=== PATIENT | male | born 2000 | race Caucasian/White ===

== ENCOUNTER 2025-08-04 20:32 | Emergency (ER) | payer SELFPAY ==
--- NOTE | ~2025-08-04 | CT_ITS ---
CLINICAL HISTORY: LLQ pain into L testicle eval for hernia CT abdomen and pelvis with contrast Comparison: None provided Findings: The lung bases are clear. 3 mm nonobstructing left inferior renal caliceal stone. Gallbladder and solid organs otherwise unremarkable. A few loops of small bowel in the pelvis are mildly distended with air-fluid levels. No wall thickening or abrupt transitions. Mesenteric vessels patent. Moderate stool. Appendectomy. No evidence of diverticulitis. Small reactive bilateral groin lymph nodes. No ascites or hernia. No acute fracture. IMPRESSION: 1. Nonspecific gas and fluid within a few pelvic small bowel loops. Localized ileus favored. No evidence of obstruction or enteritis. 2. Nonobstructing 3 mm left renal stone. 3. No hernias. 4. Additional nonacute findings as above. This document has been electronically signed by: Tisha Lazaro MD on 08/05/2025 01:01:52
[2025-08-04 21:45] VITALS: BP 129/62; PULSE 79; RESP 16; TEMP 36.7; O2SAT 99; BMI 22.8
--- NOTE | 2025-08-04 22:19 | PC.NURSE ---
pt resting, girlfriend at bedside, denies hx of this pain, pt denies injury, started 07/25/25, worse when he bends over, pain 07/05. denies nausea or vomiting. respirations even and unlabored.
[2025-08-04 22:25] LABS: MANUAL DIFF FLAG NO
[2025-08-04 22:27] LABS: Hematocrit 40.7 % (42.0-52.0); Hemoglobin 13.7 g/dl (14.0-18.0); Imm Gran Abs Auto 0.01 X10*3/uL (0.00-0.03); Imm Gran Pct Auto 0.1 % (0.0-0.4); Lymphocytes Absolute Auto 3.8 X10*3/uL (1.2-4.9); Mean Corpuscular HGB Conc 33.7 g/dl (31.0-36.0); Mean Corpuscular Hemoglobin 31.3 pg (27.0-33.0); Mean Corpuscular Volume 92.9 fL (80.0-98.0); NRBC Abs Auto 0.000 X10*3/uL (0.0-0.012); NRBC Pct Auto 0.0 /100WBC (0.0-0.2); Platelet Count 270 X10*3/uL (160-400); Red Blood Count 4.38 X10*6/uL (4.60-5.80); White Blood Count 8.5 X10*3/uL (4.8-10.8)
[2025-08-04 22:30] LABS: Appearance Urine Clear; Glucose Urine UA Negative (Negative); PH 7.0 (5.0-9.0); Specific Gravity - Urine 1.020 (1.005-1.025)
[2025-08-04 22:44] LABS: Anion Gap 12 (12-20); Blood Urea Nitrogen 14 mg/dL (9-16); Calcium 9.2 mg/dL (8.4-10.2); Carbon Dioxide 24 mmol/L (22-29); Chloride 111 mmol/L (96-108); Creatinine Clr Calc Pharmacy 98.7; Estimated Glomerular Filt Rate > 60; Potassium 4.2 mmol/L (3.3-5.1); Sodium 143 mmol/L (135-145)
--- NOTE | 2025-08-05 | PC.NURSE ---
this rn at bedside with MD Sinclair for exam. pt tolerated well
--- NOTE | 2025-08-05 00:07 | ED_ITS ---
HPI - Abdominal Pain General Chief Complaint: Abdominal Pain Stated Complaint: lwr abd pain 2wks+ Time Seen by Provider: 08/04/25 23:16 Source: patient Mode of arrival: ambulatory Limitations: no limitations History of Present Illness ED Provider: Dr. China Sinclair HPI narrative: 24-year-old male with history of appendectomy presenting with left lower quadrant abdominal pain radiating into his leg and testicle ongoing for the last 10 days or so. [place] noticed the pain 2 weeks ago. Since that time, the pain has been intermittent in nature, worse with ambulation and straining to lift things. 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 Describes left testicular pain associated with this but no swelling or penile pain. No discharge from the penis. No problems with erections. Denies associated fever, nausea, vomiting, bowel changes, dysuria or hematuria, known sick contacts or recent travel. Only abdominal surgery has been an appendectomy. Related Data Allergies Allergy/AdvReac Type Severity Reaction Status Date / Time No Known Allergies (No Known Allergy Verified 08/04/25 21:49 Allergies*) Review of Systems Review of Systems As per HPI, full review of systems performed and negative but for the above mentioned pertinent positives and negatives. [facility] Social History Social History Smoked in Last 30 Days: No Use of substances other than those prescribed or required for medical reasons: Yes Substance Use Type: Marijuana Advance Directives: No Physical Exam ED Exam Exam: GENERAL: Well-Appearing, conversant, no acute distress. SKIN: Normal skin color for ethnicity, warm, dry, no rashes noted. HEENT: Normocephalic, atraumatic, no stridor, posterior oropharynx nonerythematous, dentition intact, EOMI. NECK: Soft, supple, full ROM, midline structures nontender, no step-offs, no deformities, no lymphadenopathy. CHEST: Heart regular rate and rhythm, no murmurs, symmetric chest rise and fall. PULMONARY: Clear to auscultation bilaterally, no labored breathing, no wheezes/rhales/rhonchi. ABDOMINAL: Soft, nondistended, nontender, positive bowel sounds in all quadrants. : Circumcised penis, testicles are normal in lie, no testicular pain with palpation, positive cremasteric reflex bilaterally, negative Phren sign. MUSCULOSKELETAL: Normal tone, full range of motion, no deformities, no peripheral edema. NEURO: Alert and oriented x3, CN II through XII intact, equal strength and sensation bilateral upper and lower extremities, no focal neurologic deficits. PSYCHIATRIC: Normal affect, fluid speech, good eye contact and appropriate demeanor. Vital Signs: Vital Signs - 24 hr 08/04/25 21:45 08/05/25 00:22 Temperature 98.1 F 98.0 F Pulse Rate 79 61 Respiratory Rate 16 14 Blood Pressure 129/62 109/66 Pulse Oximetry 99 98 Oxygen Delivery Method Room Air Room Air BMI result Body Mass Index 22.8 Medical Decision Making Medical Decision Making [facility] Narrative: This patient presents today with a chief complaint of abdominal pain radiating into the left testicle. Differential diagnosis for this patient is broad.? It includes hernia, testicular torsion, musculoskeletal injury, bowel obstruction, diverticulitis, pyelonephritis, vascular pathology, among many others.? A broad-based workup based on history and physical examination was obtained. ? Patient was given Toradol for pain control. ? 12:10 AM 08/05/2025 (Dr. China Sinclair, D.O.) clinically, patient does not have evidence of torsion. He has absolutely no tenderness overlying the testicle on my exam, no swelling, positive cremasteric reflex bilaterally. I feel no bulging in the inguinal canal when he coughs. Suspect musculoskeletal injury from straining to lift at work however, we will obtain a CT of the abdomen and pelvis to evaluate for hernia. His pain is well controlled at this time. Urine does not show evidence of infection or blood to suggest kidney stones. 1:49 AM 08/05/2025 (Dr. China Sinclair, D.O.) CT shows no evidence of hernia or other acute intra-abdominal process. He has no diarrhea. He is feeling well after Toradol. Using shared decision making, plan for discharge home to follow- up with primary care and/or specialist. Patient understands and agrees with plan for discharge. Discharged home in stable condition. Differential Diagnosis Differential Diagnoses: The differential diagnosis associated with the presentation includes (As above) Admission/Observation Consideration of admission/observation: Escalation of care including admission/observation considered Lab Data [facility] Lab Attestation statement: I reviewed the patient's lab results. 08/04/25 22:11 08/04/25 22:11 Labs: Lab Results 08/04/25 Range/Units 22:11 WBC 8.5 (4.8-10.8) X10*3/uL RBC 4.38 L (4.60-5.80) X10*6/uL Hgb 13.7 L (14.0-18.0) g/dl Hct 40.7 L (42.0-52.0) % MCV 92.9 (80.0-98.0) fL MCH 31.3 (27.0-33.0) pg MCHC 33.7 (31.0-36.0) g/dl RDW 13.2 (11.0-16.0) % Plt Count 270 (160-400) X10*3/uL MPV 10.1 (9.4-12.4) fL Immature Gran % (Auto) 0.1 (0.0-0.4) % Neut % (Auto) 40.6 L (45-73) % Lymph % (Auto) 44.6 H (20-40) % [place] % (Auto) 7.9 (2-11) % Eos % (Auto) 5.9 H (0-4) % Baso % (Auto) 0.9 (0-2) % Lymph # (Auto) 3.8 (1.2-4.9) X10*3/uL [place] # (Auto) 0.7 (0.1-1.2) X10*3/uL Eos # (Auto) 0.5 H (0.0-0.4) X10*3/uL Baso # (Auto) 0.1 (0.0-0.2) X10*3/uL Abs Immat Gran (auto) 0.01 (0.00-0.03) X10*3/uL Absolute Neuts (auto) 3.4 (2.0-8.3) x10*3/uL Absolute Nucleated RBC 0.000 (0.0-0.012) X10*3/uL Nucleated RBC % (auto) 0.0 (0.0-0.2) /100WBC Sodium 143 (135-145) mmol/L Potassium 4.2 (3.3-5.1) mmol/L Chloride 111 H (96-108) mmol/L Carbon Dioxide 24 (22-29) mmol/L Anion Gap 12 (12-20) BUN 14 (9-16) mg/dL Creatinine 1.20 (0.5-1.4) mg/dL Estim Creat Clear Calc 98.7 Estimated GFR > 60 Random Glucose 93 (60-115) mg/dL Calcium 9.2 (8.4-10.2) mg/dL Urine Color Yellow Urine Appearance Clear Urine pH 7.0 (5.0-9.0) Ur Specific [place] 1.020 (1.005-1.025) Urine Protein Negative (Neg-Trace) mg/dL Urine Glucose (UA) Negative (Negative) mg/dL Urine Ketones Negative (Negative) mg/dL Urine Blood Negative (Negative) Urine Nitrite Negative (Negative) Ur Leukocyte Esterase Negative (Negative) Radiology Impression Discussion of test interpretation with radiology: I have reviewed the radiologist's reading. Independent Historian Clinical information obtained from an independent historian. History obtained from or confirmed by: Spouse Prescription Management I considered prescription management with: Pain Medication Medications Administered Discontinued Medications Generic Name Dose Route Start Last Admin Trade Name Freq PRN Reason Stop Dose Admin Iohexol 85 ml 08/05/25 00:38 08/05/25 00:39 Iohexol 350 Mg/Ml 100 Ml Infus..Btl IV 08/05/25 00:39 85 ml ONCE ONE Administration Ketorolac Tromethamine 15 mg 08/05/25 00:06 08/05/25 00:16 Ketorolac Tromethamine 15 Mg/Ml Vial IVPUSH 08/05/25 00:07 15 mg ONCE ONE Administration Discharge Plan Discharge Clinical Impression: Strain of left inguinal region Patient Disposition: Home, Self-Care Instructions: Groin Strain (ED) Additional Instructions: Try to rest for the next couple of days. Do not lift any heavy objects for at least 48 hours. Return to the ER with any new or worsening symptoms including: Worsening pain despite Tylenol and Motrin, fevers greater than 100?, bulging in your testicles or abdomen, severe testicular pain or vomiting, any new symptom that concerns you. Call 911 with any medical emergency. Stand Alone Forms: Work/School Release Print Language: Armenian
--- NOTE | 2025-08-05 00:19 | PC.NURSE ---
pt medicated per MAR
[2025-08-05 00:22] VITALS: BP 109/66; PULSE 61; RESP 14; TEMP 36.7; O2SAT 98
[2025-08-05] MEDS: iohexoL 350 MG/ML 100 ML INFUS..BTL 85 ML IV (00:39)
--- OUTSIDE RECORDS SUMMARY | 2025-08-05 00:46 | XMS_ITS | Clinical Summary ---
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 Name Role Phone Unavailable Primary Care Provider Unavailabl e Social History Tobacco Use Types Packs/Day Years Used Date Smoking Tobacco: Never Assessed Sex and Gender Information Value Date Recorded Sex Assigned at Male 09/25/2022 10:16 AM EDT Legal Sex Male 10:16 AM EDT Gender Identity Male 09/25/2022 10:16 AM EDT Sexual Orientation Straight 09/25/2022 10 :16 AM EDT Last Filed Vital Signs Vital Sign Reading Time Taken Comments Blood Pressure 123/73 08/31/2022 12:10 AM EDT Pulse 65 08/31/2022 12:10 AM EDT Temperature - - Respiratory Rate - - Oxygen Saturation - - Inhaled Oxygen Concentration - - Weight 74.6 kg (164 lb 6.4 oz) 08/31/2022 12:10 AM EDT Height 176.5 cm (5' 9.49 ) 08/31/2022 12:10 AM E DT Body Mass Index 23.94 08/31/2022 12:10 AM EDT Plan of Treatment Health Maintenance Due Date Last Done Comments Depression Screening 1999 Disability Screening 1999 Alcohol/Substance Use Screening 2011 Tobacco Screening 2011 Family Planning (PISQ) 2014 DTaP/Tdap/Td Vaccines (7 - Td or Tdap) 10/17/2021 10/17/2011, 06/22/2010, 03/31/2004, Additional history exists COVID-19 Vaccine ( season) 2025 01/10/2022, 03/24/2021, 02/25/2021 Influenza Vaccine (#1) 2025 9, 09/10/2017, 08/12/2015, Additional history exists Zoster Vaccines (1 of 2) 2049 RSV Patients and Patients Aged 60 years or older (1 - 1-dose 75+ series) 2074 Pneumococcal Vaccine: Pediatrics (0 to 5 Years) and At-Risk Patients (6 to 49) Years Aged Out 09/19/2000, 06/22/2000, 04/25/2000 No longer eligible based on patient's age to complete this topic HIB Vaccines Completed 02/18/2001, 05/27, 04/25/2000, Additional history exists IPV Vaccines Completed 03/31/2004, 03/28, 04/25/2000, Additional history exists HPV Vaccines Completed 10/22/2012, 03/26, 10/17/2011 Hepatitis A Vaccines Completed 07/20/2015, 12/18/19 14 Hepatitis B Vaccines Completed 06/01/2017, 04/25/2010, 09/19/2000, Additional history exists Meningococcal Vaccine Completed 09/10/2017, 011 Meningococcal B Vaccine Aged Out No l onger eligible based on patient's age to complete this topic RSV under 20 months Aged Out No longe r eligible based on patient's age to complete this topic Rotavirus Vaccines Aged Out No longer eligible based on patient's age to complete this topic
--- NOTE | 2025-08-05 01:46 | PC.NURSE ---
pt denies pain, states medication worked well. Pt resting comfortable, girlfriend at bedside.
[2025-08-05 02:10] VITALS: BP 132/79; PULSE 77; RESP 20; TEMP 36.7; O2SAT 100
[2025-08-05 03:49] LABS: CT PCR Urine NOT DETECTED (Not Detect.); NG PCR Urine NOT DETECTED (Not Detect.)
== END 2025-08-05 02:10 | disposition home or self-care (01) ==
PROVIDERS: Emergency Provider Emergency Medicine; PCP Pediatrics
DX: S39.011A Strain of muscle, fascia and tendon of abdomen, initial encounter (principal); X58.XXXA Exposure to other specified factors, initial encounter; Y93.89 Activity, other specified; Y92.9 Unspecified place or not applicable; Y99.9 Unspecified external cause status; R10.32 Left lower quadrant pain
CPT/HCPCS: 36415; 74177; 80048; 81003; 85025; 87491; 87591; 96374; 99284; J1885; Q9967

== ENCOUNTER → 2025-08-05 00:06 | Outpatient (BNV) | payer SELFPAY | PROVIDERS: Emergency Provider Emergency Medicine; PCP Pediatrics; Visit Provider Radiology Diagnostic Radiology | DX: N20.0 Calculus of kidney (principal) | CPT/HCPCS: 74177 ==